=== PATIENT | female | born 2000 | race African-American/Black ===

== ENCOUNTER 2023-06-22 02:38 | Emergency (ER) | payer MEDICAID ==
[~2023-06-22] VITALS: Ht 172.7 cm; Wt 88.0 kg
[2023-06-22 02:42] VITALS: BP 123/75; PULSE 100; RESP 18; TEMP 98.3; O2SAT 100
== END 2023-06-22 05:00 | disposition home or self-care (01) ==
LOC: ER 02:38
DX: F41.9 Anxiety disorder, unspecified (principal); R06.02 Shortness of breath
CPT/HCPCS: 71045; 81025; 99283

== ENCOUNTER 2023-06-22 05:47 | Emergency (ER) | payer MEDICAID ==
[~2023-06-22] VITALS: Ht 162.6 cm; Wt 93.0 kg
[2023-06-22 05:54] VITALS: O2SAT 99
[2023-06-22 09:35] VITALS: BP 126/84; PULSE 113; RESP 18; TEMP 97.9
== END 2023-06-22 09:30 | disposition home or self-care (01) ==
LOC: ER 05:55
DX: G47.00 Insomnia, unspecified (principal); F41.9 Anxiety disorder, unspecified; F90.9 Attention-deficit hyperactivity disorder, unspecified type; F84.0 Autistic disorder
CPT/HCPCS: 99281; Z7610